=== PATIENT | male | born 1965 | race Caucasian/White ===

== ENCOUNTER → 2020-06-27 | Outpatient (CLI) | payer OTHER ==
--- NOTE | 2020-06-27 15:37 | RAD ---
L-spine 3 views INDICATION: Back pain, arthritis FINDINGS: Lumbar spine is straightened. No fracture or aggressive bony lesions are apparent. Disc space narrowi ng at L5-S1 is present along with endplate osteophytic spurring. Facet hypertrophy is present at mult iple levels in the lumbar spine more conspicuously at L4-L5 and L5-S1. No bony central canal or lucy inal stenosis is apparent. Soft tissues show arterial calcifications in abdominal aorta and a stent i n upper abdominal aortic branch vessel, possibly the SMA. IMPRESSION: Primarily lumbosacral junction degenerative changes with straightening of the lumbar spine but no fra cture or aggressive bony lesions. Electronically signed by: Bradley Haas MD (06/27/2020 3:35 PM) [id number]
== END ==
LOC: RAD 09:28
PROVIDERS: ATTEND Family Medicine
DX: M47.817 Spondylosis without myelopathy or radiculopathy, lumbosacral region (principal)
CPT/HCPCS: 72100